=== PATIENT | female | born 1960 | race Caucasian/White ===

== ENCOUNTER 2017-01-18 20:27 | Emergency (ER) | payer MEDICAID, OTHER ==
[~2017-01-18] VITALS: Ht 167.6 cm; Wt 115.7 kg
[~2017-01-18 20:27] MED LIST: ENALAPRIL/HCTZ1 TA1 PO; LANTUS SOLOS100 U/ML SUBQ
[2017-01-18 21:02] VITALS: BP 115/80
--- NOTE | 2017-01-18 21:06 | NUR ---
TO ER BED 5
--- NOTE | 2017-01-18 21:09 | NUR ---
PATIENT PRESENTS TO ED WITH UPPER BACK PAIN . PT STATES PAIN IS RADIATING TO HER MID-CHEST SINCE THIS AFTERNOON . DENIES N/V/D; SKIN IS PINK/WARM/DRY; AAOX4 WITH EVEN AND STEADY GAIT; LUNGS CLEAR BL; HR EVEN AND TACHY; PT DENIES ANY FEVER, SOB, OR COUGH AT THIS TIME; PATIENT STATES PAIN OF 10/10 AT THIS TIME; VSS; PATIENT POSITIONED FOR COMFORT; HOB ELEVATED; BEDRAILS UP X2; BED DOWN. ER MD MADE AWARE OF PT STATUS.
[2017-01-18] MEDS ORDERED: NACL 0.9% 1,000 ML IV ONE (21:15)
--- NOTE | 2017-01-18 22:19 | NUR ---
Patient appears to be resting comfortably in bed. Vital Signs within normal limits. Respirations even and unlabored. AWAITING CT ARRIVAL
--- NOTE | 2017-01-18 22:26 | NUR ---
PT TO CT AT THIS TIME
[2017-01-18] MEDS ORDERED: HYDROmorphone 1 MG/ML AMP IVP ONE (22:35)
[2017-01-18] MEDS ORDERED: fentaNYL 0.05 MG/ML VIAL IVP ONE (23:05)
[2017-01-18 23:37] VITALS: BP 115/80
--- NOTE | 2017-01-18 23:38 | NUR ---
Patient discharged with v/s stable. Written and verbal after care instructions given and explained. Patient alert, oriented and verbalized understanding of instructions. Ambulatory with steady gait. All questions addressed prior to discharge. ID band removed. Patient advised to follow up with PMD. Rx of TYLENOL WITH CODEINE given. Patient educated on indication of medication including possible reaction and side effects. Opportunity to ask questions provided and answered. PT VERBALIZED THAT SON WILL BE DRIVING HER HOME FROM HOSPITAL AT THIS TIME
== END 2017-01-18 23:37 | disposition home or self-care (01) ==
LOC: MED 20:27
DX: S29.012A Strain of muscle and tendon of back wall of thorax, initial encounter (principal); I12.9 Hypertensive chronic kidney disease with stage 1 through stage 4 chronic kidney disease, or unspecified chronic kidney disease; E11.22 Type 2 diabetes mellitus with diabetic chronic kidney disease; N18.2 Chronic kidney disease, stage 2 (mild); Z79.899 Other long term (current) drug therapy; Z88.8 Allergy status to other drugs, medicaments and biological substances; B19.20 Unspecified viral hepatitis C without hepatic coma; X58.XXXA Exposure to other specified factors, initial encounter; Y93.89 Activity, other specified; Y92.89 Other specified places as the place of occurrence of the external cause; Y99.8 Other external cause status
CPT/HCPCS: 36415; 71250; 80053; 84484; 85025; 85610; 85730; 93005; 96361; 96374; 96375; 99285; J1170; J3010; J7030